=== PATIENT | female | born 1940 | race Caucasian/White ===

== ENCOUNTER 2016-12-14 18:55 | Emergency (ER) | payer OTHER, MEDICARE ==
[~2016-12-14] VITALS: Ht 165.1 cm; Wt 65.0 kg
[2016-12-14 19:08] VITALS: BP 206/84; PULSE 80; RESP 18; TEMP 97.9; O2SAT 98
[2016-12-14] MEDS ORDERED: SODIUM CHLORIDE 0.9% FLUSH 10 ML FLUSH IVF PRN (19:30)
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
[2016-12-14] MEDS ORDERED: ACETAMINOPHEN/HYDROcodone 325 MG/5 MG TAB PO ONE (20:45)
[2016-12-14] MEDS ORDERED: HYDR-3533 PO (21:11)
[2016-12-14 21:22] VITALS: BP 208/86; PULSE 77; RESP 18; TEMP 98.1; O2SAT 97
== END 2016-12-14 21:35 | disposition home or self-care (01) ==
LOC: NEPE 18:55
DX: S60.221A Contusion of right hand, initial encounter (principal); S51.811A Laceration without foreign body of right forearm, initial encounter; M50.322 Other cervical disc degeneration at C5-C6 level; M50.323 Other cervical disc degeneration at C6-C7 level; M19.041 Primary osteoarthritis, right hand; V09.09XA Pedestrian injured in nontraffic accident involving other motor vehicles, initial encounter; Y92.832 Beach as the place of occurrence of the external cause; Z72.0 Tobacco use; Z85.3 Personal history of malignant neoplasm of breast
CPT/HCPCS: 70450; 71010; 72125; 72170; 73060; 73090; 73130; 99284